=== PATIENT | male | born 1975 | race Caucasian/White ===

== ENCOUNTER 2018-01-06 05:27 | Emergency (ER) | payer OTHER ==
[~2018-01-06] VITALS: Ht 170.2 cm; Wt 96.6 kg
[~2018-01-06 05:27] MED LIST: METH4TAB2 PO; TRAM-48 PO
[2018-01-06 05:30] VITALS: BP 153/87
[2018-01-06] MEDS ORDERED: IV NORMAL SALINE 1000ML BAG 1,000 ML IV SCH (06:00)
--- NOTE | 2018-01-06 06:02 | PHYS DOC ---
Past Medical History Past Medical History: No Pertinent History Past Surgical History: Other Additional Past Surgical Histo: pelvis screws/pins Alcohol Use: Occasionally Drug Use: None Adult General Chief Complaint Chief Complaint: NAUSEA/VOMITING/DIARRHA HPI HPI Patient is a 42 year old male presented to ER today for evaluation of nausea, vomiting for the last 3 days. Patient denies any abdominal pain, no fever, no diarrhea. Patient denies any chest pain, no trouble breathing. Patient denies any recent travel. Patient said he went to urgent care yesterday, he was given a shot of Zofran, was discharged home, did not feel any better so he came in here for evaluation. He denies any history of diabetic, no history hypertension , no history of coronary artery disease. Patient said he never experienced ANYTHING like this before. Patient said he had a history of acid reflux. Review of Systems Review of Systems Constitutional: Denies fever or chills [] Eyes: Denies change in visual acuity, redness, or eye pain [] HENT: Denies nasal congestion or sore throat [] Respiratory: Denies cough or shortness of breath [] Cardiovascular: No additional information not addressed in HPI [] GI: Denies abdominal pain, POSITIVE FOR nausea, vomiting, NO bloody stools or diarrhea [] : Denies dysuria or hematuria [] Musculoskeletal: Denies back pain or joint pain [] Integument: Denies rash or skin lesions [] Neurologic: Denies headache, focal weakness or sensory changes [] Endocrine: Denies polyuria or polydipsia [] All other systems were reviewed and found to be within normal limits, except as documented in this note. Current Medications Current Medications Current Medications Medications (Trade) Dose Ordered Sig/Ramila Start Time Stop Time Status Last Admin Dose Admin Metoclopramide HCl (Reglan Vial) 10 mg 1X ONCE 01/06/18 06:15 01/06/18 06:16 DC 01/06/18 06:21 10 MG Ondansetron HCl (Zofran) 8 mg 1X ONCE 01/06/18 06:15 01/06/18 06:16 DC 01/06/18 06:21 8 MG Sodium Chloride 1,000 ml @ 1,000 mls/hr Q1H 01/06/18 06:00 01/06/18 06:59 DC 01/06/18 06:21 1,000 MLS/HR Allergies Allergies Allergies Coded Allergies Type Severity Reaction Last Updated Verified No Known Drug Allergies 08/25/15 No Physical Exam Physical Exam Constitutional: Well developed, well nourished, no acute distress, non-toxic appearance. [] HENT: Normocephalic, atraumatic, bilateral external ears normal, oropharynx moist, no oral exudates, nose normal. [] Eyes: PERRLA, EOMI, conjunctiva normal, no discharge. [] Neck: Normal range of motion, no tenderness, supple, no stridor. [] Cardiovascular:Heart rate regular rhythm, no murmur [] Lungs & Thorax: Bilateral breath sounds clear to auscultation [] Abdomen: Bowel sounds normal, soft, no tenderness, no masses, no pulsatile masses. [] Skin: Warm, dry, no erythema, no rash. [] Back: No tenderness, no CVA tenderness. [] Extremities: No tenderness, no cyanosis, no clubbing, ROM intact, no edema. [] Neurologic: Alert and oriented X 3, normal motor function, normal sensory function, no focal deficits noted. [] Psychologic: Affect normal, judgement normal, mood normal. [] Current Patient Data Vital Signs Vital Signs Date Time Temp Pulse Resp B/P (MAP) Pulse Ox O2 Delivery O2 Flow Rate FiO2 01/06/18 05:30 98.4 63 22 153/87 (109) 97 Room Air 98.4 Lab Values Laboratory Tests Test 01/06/18 06:07 White Blood Count 14.0 x10^3/uL (4.0-11.0) H Red Blood Count 5.58 x10^6/uL (4.30-5.70) Hemoglobin 15.5 g/dL (13.0-17.5) Hematocrit 45.2 % (39.0-53.0) Mean Corpuscular Volume 81 fL (79-100) Mean Corpuscular Hemoglobin 28 pg (25-35) Mean Corpuscular Hemoglobin Concent 34 g/dL (31-37) Red Cell Distribution Width 13.2 % (11.5-14.5) Platelet Count 699 x10^3/uL (140-400) H Neutrophils (%) (Auto) 85 % (31-73) H Lymphocytes (%) (Auto) 9 % (24-48) L Monocytes (%) (Auto) 5 % (0-9) Eosinophils (%) (Auto) 0 % (0-3) Basophils (%) (Auto) 1 % (0-3) Neutrophils # (Auto) 11.8 x10^3uL (1.8-7.7) H Lymphocytes # (Auto) 1.3 x10^3/uL (1.0-4.8) Monocytes # (Auto) 0.7 x10^3/uL (0.0-1.1) Eosinophils # (Auto) 0.0 x10^3/uL (0.0-0.7) Basophils # (Auto) 0.1 x10^3/uL (0.0-0.2) Sodium Level 136 mmol/L (136-145) Potassium Level 4.1 mmol/L (3.5-5.1) Chloride Level 95 mmol/L (98-107) L Carbon Dioxide Level 27 mmol/L (21-32) Anion Gap 14 (6-14) Blood Urea Nitrogen 17 mg/dL (8-26) Creatinine 1.0 mg/dL (0.7-1.3) Estimated GFR (Cockcroft-Gault) 82.3 BUN/Creatinine Ratio 17 (6-20) Glucose Level 183 mg/dL (70-99) H Calcium Level 10.3 mg/dL (8.5-10.1) H Total Bilirubin 1.1 mg/dL (0.2-1.0) H Aspartate Amino Transferase (AST) 16 U/L (15-37) Alanine Aminotransferase (ALT) 31 U/L (16-63) Alkaline Phosphatase 92 U/L (46-116) Troponin I Quantitative < 0.017 ng/mL (0.000-0.055) Total Protein 9.3 g/dL (6.4-8.2) H Albumin 4.5 g/dL (3.4-5.0) Albumin/Globulin Ratio 0.9 (1.0-1.7) L Lipase 83 U/L (73-393) Laboratory Tests 01/06/18 06:07 Laboratory Tests 01/06/18 06:07 EKG EKG EKG: RATE OF 63 BPM, NO STEMI.[] Radiology/Procedures Radiology/Procedures XRAY OF AAS: NO OBSTRUCTION[] Course & Med Decision Making Course & Med Decision Making Pertinent Labs and Imaging studies reviewed. (See chart for details) Patient felt much better, denies any chest pain, no abdominal pain. Patient will be discharged home. Dragon Disclaimer Dragon Disclaimer This electronic medical record was generated, in whole or in part, using a voice recognition dictation system. Departure Departure Impression: Primary Impression: Nausea & vomiting Disposition: 01 HOME, SELF-CARE Condition: IMPROVED Referrals: TREVOR MARQUEZ MD (PCP) FOLLOW UP WITH YOUR DOCTOR NEXT WEEK Patient Instructions: Nausea and Vomiting, Fvpa-[id number] Scripts Promethazine HCl (Phenergan) 25 Mg Supp.rect 25 MG RC TID PRN for NAUSEA, #12 SUPP.RECT Prov: ROGELIO WATTS DO 01/06/18 ROGELIO WATTS DO Jan 06, 2018 06:02
[2018-01-06] MEDS ORDERED: METOCLOPRAMIDE HCL 10 MG/2 ML VIAL. IV ONE (06:15)
[2018-01-06] MEDS ORDERED: ONDANSETRON PF 4 MG/2 ML VIAL. IV ONE (06:15)
[2018-01-06 06:23] LABS: BASO # 0.1 x10^3/uL (0.0-0.2); BASO % 1 % (0-3); EOS % 0 % (0-3); HEMATOCRIT 45.2 % (39.0-53.0); HEMOGLOBIN 15.5 g/dL (13.0-17.5); LYMPH # 1.3 x10^3/uL (1.0-4.8); LYMPH % 9 % (24-48); MEAN CORPUSCULAR HEMOGLOBIN 28 pg (25-35); MEAN CORPUSCULAR HGB CONC 34 g/dL (31-37); MEAN CORPUSCULAR VOLUME 81 fL (79-100); MONO # 0.7 x10^3/uL (0.0-1.1); MONO % 5 % (0-9); NEUT # 11.8 x10^3uL (1.8-7.7); NEUT % 85 % (31-73); PLATELET COUNT 699 x10^3/uL (140-400); RED BLOOD COUNT 5.58 x10^6/uL (4.30-5.70); RED CELL DISTRIBUTION WIDTH 13.2 % (11.5-14.5)
[2018-01-06 06:31] LABS: CALCIUM 10.3 mg/dL (8.5-10.1); GFR 82.3; POTASSIUM 4.1 mmol/L (3.5-5.1)
[2018-01-06 06:36] LABS: ALBUMIN 4.5 g/dL (3.4-5.0); ALBUMIN/GLOBULIN RATIO 0.9 (1.0-1.7); TOTAL BILIRUBIN 1.1 mg/dL (0.2-1.0); TOTAL PROTEIN 9.3 g/dL (6.4-8.2)
--- NOTE | 2018-01-06 08:43 | RAD ---
Three-view acute abdominal series. HISTORY: Nausea and vomiting 3 views were taken for an acute abdominal series. Lungs are clear. Heart is normal in size without heart failure. There is no pleural effusion. Patient's had previous pelvic surgery with plates and screws. There are right upper quadrant calcification suggesting gallstones. There is a rounded calcification on the right side of the pelvis which could be a appendicolith or calcification in a Meckel's diverticulum or a prominent phlebolith. There are fusions of the SI joints and flowing osteophytes in the spine possible ankylosing spondylitis. There is no free air on the upright view. There is no abnormal air-fluid levels in the bowel.. CT could be of benefit. IMPRESSION: 1. No acute infiltrates. 2. Fusion of the SI joint and changes in the spine possible ankylosing spondylitis. 3. Cholelithiasis. 4. Right lower quadrant calcification, CT could be of benefit. 5. No bowel obstruction. Electronically signed by: Joce Rushing MD (01/06/2018 8:39 AM) [facility]
[2018-01-06] MEDS ORDERED: PROM25SU32 RC (09:09)
--- NOTE | 2018-01-06 10:47 | EKG ---
[facility] [address] [place] [address] Test Date: 2018-01-06 Test Time: 08:04:18 Pat Name: DANIEL RODRIGUEZ Department: Room: Gender: M Tax Staff Accountant: : [id number] Requested By: ROGELIO WATTS Order Number: [id number] Reading MD: Yonis Mohan MD Measurements Intervals [place] Rate: 63 P: 0 DE: 124 QRS: 26 QRSD: 90 T: 18 QT: 404 QTc: 416 Interpretive Statements SINUS RHYTHM Electronically Signed On 01-07-2018 15:20:27 CHEF ASSISTANT by Yonis Mohan MD
== END 2018-01-06 10:37 | disposition home or self-care (01) ==
LOC: ER 05:27
DX: R11.2 Nausea with vomiting, unspecified (principal)
CPT/HCPCS: 36415; 74022; 80053; 83690; 84484; 85025; 93005; 96361; 96374; 96375; 99285; J2405; J2765; J7030